=== PATIENT | male | born 1935 | race Caucasian/White ===

== ENCOUNTER 2017-02-17 21:43 | Inpatient (IN) | payer MEDICARE, BC ==
[~2017-02-17] VITALS: Ht 172.7 cm; Wt 72.6 kg
--- NOTE | ~2017-02-17 | DS ---
Unit #: [id number] #: [id number] Patient: RBYAN LOZADA SR [id number] [address] [place], [place] [address] [id number] MR#: [id number] NAME: BRYAN LOZADA SR ROOM: 557 Age: 81 Sex: M Admission Date: 02/17/2017 : 1935 Discharge Date: 02/22/2017 Attending Physician: Martha Haynes M.D. Primary Care Physician: Yannick Diaz D.O. DISCHARGE SUMMARY DISCHARGE DIAGNOSES 1. Acute non-ST elevation myocardial infarction. 2. Coronary artery disease, status post cardiac catheterization on 02/20/2017, which revealed normal LV. Left main normal. LAD 100% in origin. Saphenous vein graft to LAD 99% at mid portion. LAD beyond graft normal. Left circumflex small. First obtuse marginal 100%. Saphenous vein graft to the obtuse marginal one 100%. Second obtuse marginal normal. Right coronary artery normal. Small PDA 90%. Third saphenous vein graft to the diagonal 100%. Dr. Abrams consulted for reoperative coronary artery bypass grafting. Films reviewed. LAD not ideal target for surgery. Status post PCI and drug-eluting stent in the saphenous vein graft to the LAD on 02/21/2017. 3. History of coronary artery bypass grafting. 4. Two-dimensional echocardiogram 02/18/2017 was a technically difficult study. Ejection fraction 45%-50%. Moderate septal hypokinesis. Mild LVH. Mildly dilated left atrium. Mildly enlarged right atrial size. Aortic valve leaflets sclerotic with no stenosis. Mild to moderate aortic regurgitation. Mild to moderate mitral regurgitation. Moderate tricuspid regurgitation. Right ventricular systolic pressure 47 mmHg. No evidence of pericardial effusion. 5. Hypertension. 6. Hyperlipidemia. 7. Diabetes mellitus type 2. 8. Mild thrombocytopenia. DISCHARGE MEDICATIONS 1. Metformin 500 mg p.o. b.i.d. Resume on 02/23/2017. 2. Mariya 180 mg p.o. daily. 3. Atorvastatin 80 mg p.o. at bedtime. 4. Metoprolol succinate 25 mg p.o. b.i.d. 5. Torsemide 10 mg p.o. daily p.r.n. 6. Astelin 2 sprays in each nostril b.i.d. p.r.n. allergies. 7. Lisinopril 10 mg p.o. daily. 8. Aspirin 81 mg p.o. daily. 9. Brilinta 90 mg p.o. b.i.d. 10. Potassium chloride 10 mEq p.o. daily p.r.n. 11. Nitroglycerin 0.4 mg sublingual p.r.n. chest pain. HOSPITAL COURSE This is an 81-year-old white male who presented to the hospital with complaints of chest pain. He ruled in for a non-ST elevation myocardial infarction. He was recommended to undergo cardiac catheterization. His troponin peaked at 1.26, and subsequently decreased to 0.57. Lipid Unit #: [id number] #: [id number] Patient: BRYAN LOZADA SR profile was obtained and he was switched to a high dose statin. He was continued on a beta lai and MARY inhibitor. His metformin was held prior to the cardiac catheterization. The procedure was completed on 02/20/2017. Coronary angiography revealed 100% occlusion of the LAD. Saphenous vein graft to the LAD had a 99% stenosis in the mid portion. The LAD beyond the graft was normal. Left main and right coronary artery were normal. There was a small PDA of 90%. Left circumflex is small. First obtuse marginal was 100%. Saphenous vein graft to the first obtuse marginal was 100%. Second obtuse marginal was normal. The third saphenous vein graft to the diagonal was 100%. The patient's films were reviewed by Dr. Abrams. In his opinion the LAD was not an ideal target. He suggested proceeding with PCI on the saphenous vein graft to the LAD. The patient underwent successful deployment of a Synergy drug-eluting stent in the saphenous vein graft to the LAD, reducing the stenosis to 0%. He tolerated the procedure well. He was transferred to telemetry overnight. Postoperatively there was no complaint of chest pain. EKG reveals sinus rhythm with nonspecific ST-T wave changes. Telemetry reveals sinus rhythm/sinus bradycardia. The patient has ambulated without complaints. His catheterization site is soft without hematoma. Two-dimensional echocardiogram was completed on 02/18/2017 and revealed an ejection fraction of 45%-50%. There was mild to moderated aortic and mitral regurgitation, as well as moderate tricuspid regurgitation. RVSP was elevated at 47 mmHg. The two-dimensional echocardiogram was a technically difficult study. The patient is stable and will be discharged home today. He has been recommended for cardiac rehab. Post catheterization instructions have been provided. He has been placed on dual antiplatelet therapy with aspirin and Brilinta and the importance of continuing for 12 months has been discussed with the patient and he verbalized understanding. The cost of Brilinta is being evaluated with the [facility]. The patient has been provided samples as well as a 30-day copay card. He has also been given a prescription for atorvastatin. DIAGNOSTIC DATA LABORATORY: White blood cell count 7.6, hemoglobin 13.3, hematocrit 38.8, platelets 128, sodium 138, potassium 4.2, chloride 103, CO2 29, BUN 16, creatinine 1.1, glucose 111, peak troponin 1.26 followed by 0.57. CK total 47, MB 2.3, percentage MB 4.9, total cholesterol 114, triglycerides 76, LDL 52, HDL 47. CARDIOVASCULAR: Electrocardiogram reveals sinus rhythm with nonspecific ST-T wave changes. QTC 404 msec. PHYSICAL EXAMINATION VITALS: Temperature 97.5, pulse 76, blood pressure 113/53. CONSTITUTIONAL: This is an 81-year-old white male in no acute distress. SKIN: Warm and dry. NECK: Supple. No jugular venous distension. No hepatojugular reflux. Normal carotid upstrokes. No bruits auscultated. HEART: S1 and S2. Regular rate and rhythm. No murmurs, rubs or gallops. LUNGS: Bilateral breath sounds have good air entry throughout lung hernandez. Respirations even and unlabored. No rales, rhonchi or wheezes. ABDOMEN: Soft, nontender and nondistended. Positive bowel sounds auscultated four quadrants. No ascites noted. EXTREMITIES: Lower extremities have no pretibial pitting edema. DP and PT pulses 2+. Capillary refill 3 seconds. Right groin soft without hematoma. Unit #: [id number] #: [id number] Patient: BRYAN LOZADA SR Cathy DISCHARGE INSTRUCTIONS 1. The patient will be discharged home today. 2. Cardiac rehab. 3. Follow up with primary care physician in one to two weeks. 4. Follow up with Dr. Kohler on 05/02/2017 at 1:15 p.m. 5. Post catheterization instructions provided. 6. Copay card and one-month of samples provided for Drea. Dictated by... Ana Hein APRN for Eze Rivera/denise TD: 02/24/2017 09:42 JOB #: [id number] DISCHARGE SUMMARY Page 1 of 1 X X DISCHARGE SUMMARY
--- NOTE | ~2017-02-17 | EKG ---
PATIENT: BRYAN LOZADA UNIT #: [id number] Ventricular Rate: 83 BPM Atrial Rate: 83 BPM P-R Interval: 150 ms QRS Duration: 102 ms Q-T Interval: 350 ms QTC Calculation(Bezet): 411 ms P [place]: 57 degrees Calculated R [place]: 1 degrees Calculated T [place]: 163 degrees Diagnosis Line: Normal sinus rhythm Diagnosis Line: Possible Left atrial enlargement Diagnosis Line: ST and T wave abnormality, consider inferolateral Diagnosis Line: ischemia Diagnosis Line: Abnormal ECG Diagnosis Line: When compared with ECG of 28-NOV-2011 07:00, Diagnosis Line: QRS duration has increased Diagnosis Line: ST now depressed in Lateral leads Diagnosis Line: T wave inversion now evident in Lateral leads Diagnosis Line: Confirmed by ESTER SANTOS MD ([id number]) on Diagnosis Line: 02/27/2017 9:55:04 PM INTERPRETING MD: EVARISTO
--- NOTE | ~2017-02-17 | EKG ---
PATIENT: BRYAN LOZADA UNIT #: [id number] Ventricular Rate: 71 BPM Atrial Rate: 71 BPM P-R Interval: 144 ms QRS Duration: 94 ms Q-T Interval: 390 ms QTC Calculation(Bezet): 423 ms P [place]: 62 degrees Calculated R [place]: 21 degrees Calculated T [place]: 114 degrees Diagnosis Line: Normal sinus rhythm Diagnosis Line: T wave abnormality, consider anterolateral Diagnosis Line: ischemia Diagnosis Line: Anterior infarct Diagnosis Line: Abnormal ECG Diagnosis Line: When compared with ECG of 18-FEB-2017 08:18, Diagnosis Line: (unconfirmed) Diagnosis Line: Nonspecific T wave abnormality no longer evident Diagnosis Line: in Inferior leads Diagnosis Line: Serial changes of evolving Anterior infarct Diagnosis Line: Confirmed by TOMA RM MD ([id number]) on 02/21/2017 Diagnosis Line: 10:49:07 PM INTERPRETING MD: JAG FONTAINE
--- NOTE | ~2017-02-17 | HP ---
Unit #: [id number] #: [id number] Patient: BRYAN LOZADA SR [id number] [facility]. [place] [id number] [facility]. [place], [place] [address] [id number] I MR#: [id number] NAME: BRYAN LOZADA SR ROOM: 557 Age: 81 Sex: M Admission Date: 02/17/2017 : 1935 Attending Physician: Martha Haynes M.D. Primary Care Physician: Yannick Diaz D.O. HISTORY AND PHYSICAL HISTORY OF PRESENT ILLNESS This is an 81-year-old, white male who is a patient of Dr. Kohler in our office. He has a history of previous CABG back in 1988. In 2011, he had a cardiac cath that showed his grafts are patent to the LAD and the diagonal branch of the LAD and he had an 80% stenosis to the saphenous vein graft to the first obtuse marginal of the circumflex. He was offered angioplasty/stent versus medical management. At the time, the patient preferred medical management. Since that time, patient has been stable. He just saw Dr. Kohler in December and was doing fine. Patient does say that the last week, he has been having intermittent left anterior chest wall pain that radiates down into the left axillary region. He said it makes him feel just a little weak. He denies any shortness of breath. Denies any palpitations. No dizziness. No diaphoresis. He has not had any recent fever or chills, but he has been going to his doctor for allergy problems, which has also improved. Last evening, he said the pain returned and would not ease off. He said over the past week he has been taking some sublingual nitroglycerin and has eased off the pain and then it will stay gone for a few hours and reoccur and he would take another nitroglycerin with relief. He said during this episode the pain would not ease off with nitroglycerin. He came in for further evaluation and management. He denies it radiates up to his neck or jaw. He is not having abdominal or back pain. In the emergency room, patient's blood pressure is 184/87 and heart rate 84, respirations 16, temperature 98.5, and O2 sats 99% on room air. His initial cardiac enzymes: His troponin was 0.14 and then 0.14 and this morning it is 1.06. His creatinine is 1.2, potassium is 4, sodium 135, and magnesium is 1.9. His platelets this morning are 135. His BNP is 144. His chest x-ray shows no active disease and previous CABG. His EKG shows normal sinus rhythm. It does have some ST-T wave abnormalities in inferolateral leads. Patient was started on heparin drip per protocol and also given aspirin 325 and started on a nitroglycerin drip, which that continues. He also continued on his MARY inhibitor, his statin, Plavix, aspirin, and beta-lai. Patient will be admitted for further management of non-ST elevated AK. PAST MEDICAL HISTORY 1. History of coronary artery disease, previous CABG back in 1988. November 2011, his last cardiac cath revealed EF of 50%, patent saphenous vein graft to the LAD, patent saphenous vein graft to the diagonal branch of the LAD, and 80% stenosis in the saphenous vein graft to the first obtuse marginal of the circumflex - medical management. 2. Noted that during a cath in 1989, he had ventricular fibrillation on Unit #: [id number] #: [id number] Patient: BRYAN LOZADA injection of contrast dye into the diagonal branch of the saphenous vein graft. 3. Diabetes mellitus type 2. 4. Hypertension. 5. Hyperlipidemia. 6. Peripheral vascular disease. 7. Smokes a pipe. PAST SURGICAL HISTORY 1. Coronary artery bypass graft in 1988. 2. Cholecystectomy. 3. Right knee replacement. 4. Cervical neck fusion. 5. Cataract surgery. HOME MEDICATIONS 1. Simvastatin 20 mg p.o. at h.s. 2. Metformin 500 mg p.o. twice daily. 3. Lisinopril 10 mg p.o. once daily in the morning. 4. Torsemide 10 mg p.o. daily. 5. Potassium chloride 10 mEq p.o. daily. 6. Aspirin 81 mg daily. 7. Nitrostat 0.4 mg sublingual every 5 minutes x3 p.r.n. for chest pain. 8. Toprol XL 25 mg p.o. twice daily. 9. Azelastine inhalation in each nostril twice daily. 10. Mariya 180 mg p.o. daily. ALLERGIES Codeine and doxycycline. SOCIAL HISTORY Patient lives with his spouse. He does some chores around the home, but nothing very exertional. He continues to smoke a pipe. No alcohol or illicit drug use. FAMILY HISTORY Both his parents had myocardial infarction in their 70s. A younger brother, who has had a coronary bypass graft in his 70s. REVIEW OF SYSTEMS CONSTITUTIONAL: Denies fever or chills. No recent weight gain or weight loss. HEENT: Denies headache or dizziness. No visual or hearing changes. No lymphadenopathy or thyromegaly. No difficulty swallowing. CARDIOVASCULAR: Chest pain present. Denies palpitations. Some slight increased lower extremity edema, especially on the left. GI: Denies nausea, vomiting, diarrhea, or abdominal pain. NEUROLOGIC: No focal weakness. PHYSICAL EXAMINATION GENERAL: On exam, Mr. Lozada is an 81-year-old, white male in no acute respirations distress. He is awake, alert, and oriented. VITAL SIGNS: Blood pressure is 123/58, heart rate 64, respirations 18, temperature 97.7, and O2 saturation 100% on room air. NECK: Trachea midline. No thyromegaly or lymphadenopathy. Normal carotid upstrokes. No jugular venous distention. HEART: S1 and S2. Regular rate and rhythm. No clicks. Slight systolic murmur, left sternal border. Unit #: [id number] #: [id number] Patient: BRYAN LOZADA SR LUNGS: Slightly diminished, otherwise clear. ABDOMEN: Slightly obese. Soft and nontender. Positive bowel sounds present. EXTREMITIES: Pedal pulses are palpable. Pedal edema 1+, especially on the left. LABORATORY AND DIAGNOSTIC DATA LABORATORY: Glucose is 127, BUN 20, creatinine 1.2, EGFR is 56.4, sodium 135, potassium 4, chloride 101, CO2 29, calcium is 8.8, magnesium is 1.9, total protein 7, albumin 4, AST is 19, ALT 17, and alk phos is 74. BNP is 144. WBC is 7, hemoglobin 14.2, hematocrit 41.9, and platelets down to 134. On admission, his platelets were 146. Initial cardiac enzymes: CK MB 1.7, troponin 0.14. CK MB 1.7 and troponin 0.14. This morning, troponin is 1.06. IMAGING: Chest x-ray shows no active disease and previous coronary artery bypass graft. CARDIOVASCULAR: EKG shows normal sinus rhythm, some nonspecific ST-T wave abnormalities in lateral leads, Q waves in V1 and possibly lead III, and left atrial enlargement. IMPRESSION 1. Acute non-ST elevated myocardial infarction, previous coronary artery bypass graft in 1998 and found to have an 80% stenosis in the saphenous vein graft to the first obtuse marginal branch of the circumflex back on a cath in 2011. Medical management. 2. Ejection fraction of 50% on last cath in 2011. 3. Diabetes mellitus type 2. 4. Hypertension. 5. Hyperlipidemia. 6. Peripheral vascular disease. 7. Nicotine abuse, smokes a pipe. PLANS 1. Treatment for the acute non-STEMI, has the patient on aspirin, heparin drip, and nitroglycerin drip. Will start Integrilin drip per protocol now. 2. Also, will stop the Zocor and start Lipitor 80 mg p.o. daily. 3. Obtain a 2D echo to evaluate LV function and valves. 4. Will titrate the nitroglycerin drip for chest pain and to keep his systolic above 100 mmHg. 5. Obtain a fasting lipid profile and TSH and evaluate. 6. I discussed with the patient about will need a heart catheterization to further evaluate his ischemic heart disease. 7. On exam, there are no signs or symptoms of acute congestive heart failure. As mentioned, will evaluate his echo. 8. Continue patient on his MARY inhibitor in addition to his Lasix 10 mg daily and low dose potassium. 9. Discussed with patient the cardiac cath. Discussed with patient risks and benefits including risks of bleeding, myocardial infarction, stroke, and even . Patient verbalizes understanding and agrees to proceed. 10. Patient, this morning, has been having some additional chest pain. Discussed at length with the patient about the possibility the need to transfer him to [facility] to have an intervention before Monday. The patient and the are adamantly refusing to do this at this point. He just wants to wait until Monday. Unit #: [id number] #: [id number] Patient: BRYAN LOZADA 11. Discussed with patient . 12. Further recommendations pending per Dr. Haynes. 13. Encouraged patient to quit smoking a pipe, nicotine abuse. Smoking cessation information provided to patient. Dictated by Loni Verma A.P.R.NRichi for Eze Torres/pc TD: 02/18/2017 11:51 JOB #: [id number] HISTORY AND PHYSICAL Page 1 of 1 X Loni Verma APRN X HISTORY AND PHYSICAL
--- NOTE | ~2017-02-17 | EKG ---
PATIENT: BRYAN LOZADA UNIT #: [id number] Ventricular Rate: 64 BPM Atrial Rate: 64 BPM P-R Interval: 158 ms QRS Duration: 86 ms Q-T Interval: 392 ms QTC Calculation(Bezet): 404 ms P [place]: 56 degrees Calculated R [place]: 17 degrees Calculated T [place]: 108 degrees Diagnosis Line: Normal sinus rhythm Diagnosis Line: T wave abnormality, consider anterior ischemia Diagnosis Line: Abnormal ECG Diagnosis Line: When compared with ECG of 21-FEB-2017 05:33, Diagnosis Line: No significant change was found Diagnosis Line: Confirmed by TOMA RM MD ([id number]) on 02/22/2017 Diagnosis Line: 12:04:58 AM INTERPRETING MD: JAG FONTAINE
--- NOTE | ~2017-02-17 | EKG ---
PATIENT: BRYAN LOZADA UNIT #: [id number] Ventricular Rate: 72 BPM Atrial Rate: 72 BPM P-R Interval: 118 ms QRS Duration: 90 ms Q-T Interval: 392 ms QTC Calculation(Bezet): 429 ms P [place]: 25 degrees Calculated R [place]: 2 degrees Calculated T [place]: 93 degrees Diagnosis Line: Normal sinus rhythm Diagnosis Line: T wave abnormality, consider anterior ischemia Diagnosis Line: Abnormal ECG Diagnosis Line: When compared with ECG of 28-NOV-2011 07:00, Diagnosis Line: Nonspecific T wave abnormality, worse in Inferior Diagnosis Line: leads Diagnosis Line: T wave inversion now evident in Anterolateral Diagnosis Line: leads Diagnosis Line: Confirmed by TOMA RM MD ([id number]) on 02/21/2017 Diagnosis Line: 6:54:12 AM INTERPRETING MD: JAG FONTAINE
--- NOTE | ~2017-02-17 | EKG ---
PATIENT: BRYAN LOZADA UNIT #: [id number] Ventricular Rate: 70 BPM Atrial Rate: 70 BPM P-R Interval: 138 ms QRS Duration: 86 ms Q-T Interval: 388 ms QTC Calculation(Bezet): 419 ms P [place]: 60 degrees Calculated R [place]: 23 degrees Calculated T [place]: 121 degrees Diagnosis Line: Normal sinus rhythm Diagnosis Line: ST and T wave abnormality, consider anterolateral Diagnosis Line: ischemia Diagnosis Line: Abnormal ECG Diagnosis Line: When compared with ECG of 19-FEB-2017 07:40, Diagnosis Line: (unconfirmed) Diagnosis Line: Nonspecific T wave abnormality now evident in Diagnosis Line: Inferior leads Diagnosis Line: Confirmed by TOMA RM MD ([id number]) on 02/21/2017 Diagnosis Line: 11:33:49 PM INTERPRETING MD: JAG FONTAINE
--- NOTE | ~2017-02-17 | EKG ---
PATIENT: BRYAN LOZADA UNIT #: [id number] Ventricular Rate: 63 BPM Atrial Rate: 63 BPM P-R Interval: 140 ms QRS Duration: 90 ms Q-T Interval: 414 ms QTC Calculation(Bezet): 423 ms P [place]: 65 degrees Calculated R [place]: 18 degrees Calculated T [place]: 130 degrees Diagnosis Line: Normal sinus rhythm Diagnosis Line: T wave abnormality, consider anterolateral Diagnosis Line: ischemia Diagnosis Line: Abnormal ECG Diagnosis Line: When compared with ECG of 20-FEB-2017 05:39, Diagnosis Line: (unconfirmed) Diagnosis Line: No significant change was found Diagnosis Line: Confirmed by TOMA RM MD ([id number]) on 02/21/2017 Diagnosis Line: 11:58:08 PM INTERPRETING MD: JAG FONTAINE
--- NOTE | ~2017-02-17 | EKG ---
PATIENT: BRYAN LOZADA UNIT #: [id number] Ventricular Rate: 77 BPM Atrial Rate: 77 BPM P-R Interval: 134 ms QRS Duration: 90 ms Q-T Interval: 378 ms QTC Calculation(Bezet): 427 ms P [place]: 75 degrees Calculated R [place]: 40 degrees Calculated T [place]: 139 degrees Diagnosis Line: Normal sinus rhythm Diagnosis Line: ST and T wave abnormality, consider anterolateral Diagnosis Line: ischemia Diagnosis Line: Abnormal ECG Diagnosis Line: When compared with ECG of 21-FEB-2017 10:04, Diagnosis Line: No significant change was found Diagnosis Line: Confirmed by TOMA RM MD ([id number]) on 02/22/2017 Diagnosis Line: 11:09:13 PM INTERPRETING MD: JAG FONTAINE
--- NOTE | ~2017-02-17 | CR72 ---
[facility]. [facility] A Service of [facility] & [facility] RADIOLOGY TEXT RESULTS PATIENT: BRYAN LOZADA LOCATION: [place] [address] : [birth year] UNIT #: [id number] AGE: [address]: Martha Haynes MD SEX: M ORDER DR: [id number] [place] [id number] I MR#: [id number] Acc #: [id number] NAME: BRYAN LOZADA SR : 1935 SEX: M STUDY DATE/TIME: 02/17/2017 22:38 UNIT: SEDOF ROOM: [facility] STUDY DESCRIPTION: CR Chest Single View Portable Attending Physician: Martha Haynes M.D. Ordering Physician: Fernandez Hanson (Res) Primary Care Physician: Yannick Diaz D.O. MEDICAL IMAGING REPORT This report is preliminary unless electronic signature is present. EXAM Chest x-ray, 02/17/2017 HISTORY 81-year-old male in the ED complaining of 1-week history of chest pain. TECHNIQUE AP portable upright chest x-ray. FINDINGS The exam shows no active disease in the chest. Mild cardiomegaly is stable. Pulmonary vascularity is normal. Postop changes CABG. The lungs appear clear. No pleural effusion. No significant change since 05/08/2013. IMPRESSION No active disease. CABG. No change since 05/08/2013. Dictated by... Tristen Doyle M.D. THIS IS AN ELECTRONICALLY VERIFIED REPORT Tristen Doyle M.D. at 02/18/2017 5:58 AM RAJESH/donnell TD: 02/18/2017 03:47 JOB #: [id number] MEDICAL IMAGING REPORT Page 1 of 1
[~2017-02-17 21:43] MED LIST: ASPIRIN PO; BACTRIM DS TABL1 TA1 PO; BAYER ASPIRIN325 M1 PO; CARAFATE1 G PO; DEMADEX PO; HCTZ PO; ISORDIL; ISORDIL PO; KCL PO; LASIX PO; LISINOPRIL PO; LISINOPRIL10 MG PO; LOPRESSOR PO; LORTAB 5/500 TA1 TA1 PO; METFORMIN HCL500 M1 PO; METFORMIN PO; NITROGLYGERIN0.4 MG SL; PEPCID PO; PLAVIX PO; POTASSIUM CHLO10 ME1 PO; PRILOSEC20 MG PO; PROTONIX PO; SIMVASTATIN20 MG PO; TORSEMIDE10 MG PO; VICODIN 5/1 TAB 5/50 PO; ZOCOR PO
[2017-02-17] MEDS ORDERED: TOPROL XL50 MG PO (22:05)
[2017-02-17 22:16] LABS: BASOPHIL% 0.4 % (0-2.5); EOSINOPHIL# 0.3 X10e3 (0-0.7); EOSINOPHIL% 4.1 % (0.0-7.0); HEMATOCRIT 42.7 % (38.0-50.0); HEMOGLOBIN 14.7 gm/dL (13.0-16.0); LYMPHOCYTE# 1.8 X10e3 (1.0-3.5); LYMPHOCYTE% 25.1 % (17.0-45.0); MEAN CELL VOLUME 90.4 FL (83-96); MEAN CORPUSCULAR HEMOGLOBIN 31.2 PG (28-34); MEAN CORPUSCULAR HGB CONC 34.5 g/dL (30-36); MEAN PLATELET VOLUME 8.7 FL (6.5-11.5); MONOCYTE% 14.1 % (3.0-12.0); NEUTROPHIL# 4.1 X10e3 (1.5-7.1); NEUTROPHIL% 56.3 % (40-75); PLATELET COUNT 146 X10e3 (140-420); RED BLOOD COUNT 4.73 X10e (3.90-5.60); RED CELL DISTRIBUTION WIDTH 14.1 % (11.0-15.5); WHITE BLOOD COUNT 7.2 X10e3 (4.0-10.5)
[2017-02-17 22:17] LABS: DIFF IND NO
[2017-02-17 22:23] LABS: POC - CKMB 1.7 ng/mL (0.0-7.9)
[2017-02-17 22:24] LABS: POC - TROPONIN 0.14 ng/mL (<=0.05)
[2017-02-17 22:28] LABS: BILIRUBIN, DIRECT 0.1 mg/dL (0.0-0.2); BILIRUBIN,INDIRECT 0.5 mg/dL (0.0-0.9); BILIRUBIN,TOTAL 0.6 mg/dL (0.2-2.0); BUN/CREATININE RATIO 19.16; CALCIUM SERUM 8.8 mg/dL (8.4-10.2); CREATININE SERUM 1.2 mg/dL (0.6-1.4); GLOM FILT RATE Estimated 56.4 mL/min (>60)
[2017-02-17 22:29] LABS: INR 1.1; PROTHROMBIN TIME (PATIENT) 12.4 SECONDS (9.5-12.4)
[2017-02-17 22:36] LABS: PARTIAL THROMBOPLASTIN TIME 26.5 SECONDS (25.6-38.1)
[2017-02-17 23:50] LABS: POC - CKMB 1.7 ng/mL (0.0-7.9); POC - TROPONIN 0.14 ng/mL (<=0.05)
[2017-02-18] MEDS ORDERED: AZELASTINE205.5 MCG/ INH (01:56)
[2017-02-18] MEDS ORDERED: ALLEGRA ALLERG180 MG PO (01:57)
[2017-02-18 04:23] LABS: BASOPHIL% 0.6 % (0-2.5); EOSINOPHIL# 0.3 X10e3 (0-0.7); EOSINOPHIL% 4.1 % (0.0-7.0); HEMATOCRIT 41.9 % (38.0-50.0); HEMOGLOBIN 14.2 gm/dL (13.0-16.0); LYMPHOCYTE# 1.9 X10e3 (1.0-3.5); LYMPHOCYTE% 27.6 % (17.0-45.0); MEAN CELL VOLUME 90.7 FL (83-96); MEAN CORPUSCULAR HEMOGLOBIN 30.7 PG (28-34); MEAN CORPUSCULAR HGB CONC 33.9 g/dL (30-36); MEAN PLATELET VOLUME 8.7 FL (6.5-11.5); MONOCYTE# 0.9 X10e3 (0-1.0); MONOCYTE% 12.7 % (3.0-12.0); NEUTROPHIL# 3.9 X10e3 (1.5-7.1); PLATELET COUNT 134 X10e3 (140-420); RED BLOOD COUNT 4.62 X10e (3.90-5.60); RED CELL DISTRIBUTION WIDTH 13.9 % (11.0-15.5)
[2017-02-18 04:30] LABS: DIFF IND NO
[2017-02-18 04:31] LABS: INR 1.1; PARTIAL THROMBOPLASTIN TIME 68.5 SECONDS (23.5-31.3); PROTHROMBIN TIME (PATIENT) 11.6 SECONDS (10.0-11.7)
[2017-02-18 04:33] LABS: BUN/CREATININE RATIO 16.66; CALCIUM SERUM 8.8 mg/dL (8.4-10.2); CREATININE SERUM 1.2 mg/dL (0.6-1.4); GLOM FILT RATE Estimated 56.4 mL/min (>60); MAGNESIUM 1.9 mg/dL (1.6-3.0)
[2017-02-18 10:03] LABS: CHOLESTEROL 116 mg/dL (0-200); HDL CHOLESTEROL 51 mg/dL (29-75); LDL CHOLESTEROL 53 mg/dL (-130); LDL/HDL RATIO 1 RATIO (0-4); TRIGLYCERIDES 59 mg/dL (10-160)
[2017-02-19 04:58] LABS: BASOPHIL% 0.6 % (0-2.5); DIFF IND NO; EOSINOPHIL# 0.3 X10e3 (0-0.7); EOSINOPHIL% 4.5 % (0.0-7.0); HEMATOCRIT 42.4 % (38.0-50.0); HEMOGLOBIN 14.5 gm/dL (13.0-16.0); LYMPHOCYTE# 1.6 X10e3 (1.0-3.5); LYMPHOCYTE% 24.2 % (17.0-45.0); MEAN CELL VOLUME 90.7 FL (83-96); MEAN CORPUSCULAR HGB CONC 34.2 g/dL (30-36); MEAN PLATELET VOLUME 8.6 FL (6.5-11.5); MONOCYTE# 0.9 X10e3 (0-1.0); MONOCYTE% 13.3 % (3.0-12.0); NEUTROPHIL# 3.8 X10e3 (1.5-7.1); NEUTROPHIL% 57.4 % (40-75); PLATELET COUNT 129 X10e3 (140-420); RED BLOOD COUNT 4.68 X10e (3.90-5.60); RED CELL DISTRIBUTION WIDTH 13.9 % (11.0-15.5); WHITE BLOOD COUNT 6.6 X10e3 (4.0-10.5)
[2017-02-19 06:33] LABS: CALCIUM SERUM 8.8 mg/dL (8.4-10.2); GLOM FILT RATE Estimated 70.3 mL/min (>60)
[2017-02-20 07:21] LABS: BASOPHIL% 0.6 % (0-2.5); EOSINOPHIL# 0.3 X10e3 (0-0.7); EOSINOPHIL% 4.8 % (0.0-7.0); LYMPHOCYTE# 1.9 X10e3 (1.0-3.5); LYMPHOCYTE% 27.4 % (17.0-45.0); MEAN CELL VOLUME 90.7 FL (83-96); MEAN CORPUSCULAR HGB CONC 34.2 g/dL (30-36); MEAN PLATELET VOLUME 9.4 FL (6.5-11.5); MONOCYTE% 14.8 % (3.0-12.0); NEUTROPHIL# 3.6 X10e3 (1.5-7.1); NEUTROPHIL% 52.4 % (40-75); PLATELET COUNT 132 X10e3 (140-420); RED BLOOD COUNT 4.85 X10e (3.90-5.60); RED CELL DISTRIBUTION WIDTH 14.1 % (11.0-15.5); WHITE BLOOD COUNT 6.9 X10e3 (4.0-10.5)
[2017-02-20 07:28] LABS: INR 1.1; PROTHROMBIN TIME (PATIENT) 11.7 SECONDS (10.0-11.7)
[2017-02-20 07:50] LABS: DIFF IND NO
[2017-02-21 04:22] LABS: BASOPHIL% 0.4 % (0-2.5); EOSINOPHIL# 0.4 X10e3 (0-0.7); EOSINOPHIL% 5.7 % (0.0-7.0); HEMATOCRIT 40.3 % (38.0-50.0); HEMOGLOBIN 13.8 gm/dL (13.0-16.0); LYMPHOCYTE# 1.6 X10e3 (1.0-3.5); LYMPHOCYTE% 24.6 % (17.0-45.0); MEAN CELL VOLUME 90.5 FL (83-96); MEAN CORPUSCULAR HEMOGLOBIN 30.9 PG (28-34); MEAN CORPUSCULAR HGB CONC 34.1 g/dL (30-36); MEAN PLATELET VOLUME 8.4 FL (6.5-11.5); MONOCYTE# 0.8 X10e3 (0-1.0); NEUTROPHIL# 3.6 X10e3 (1.5-7.1); NEUTROPHIL% 57.3 % (40-75); PLATELET COUNT 131 X10e3 (140-420); RED BLOOD COUNT 4.45 X10e (3.90-5.60); RED CELL DISTRIBUTION WIDTH 13.7 % (11.0-15.5); WHITE BLOOD COUNT 6.3 X10e3 (4.0-10.5)
[2017-02-21 04:23] LABS: DIFF IND NO
[2017-02-21 04:37] LABS: INR 1.1; PARTIAL THROMBOPLASTIN TIME 36.8 SECONDS (23.5-31.3); PROTHROMBIN TIME (PATIENT) 11.8 SECONDS (10.0-11.7)
[2017-02-21 04:45] LABS: BUN/CREATININE RATIO 18.18; CALCIUM SERUM 8.8 mg/dL (8.4-10.2); CREATININE SERUM 1.1 mg/dL (0.6-1.4); GLOM FILT RATE Estimated 62.6 mL/min (>60); POTASSIUM 4.3 mmol/L (3.5-5.1)
[2017-02-21 17:46] LABS: ANGIO %MB 5.2 % (0.0-4.0); ANGIO MB 2.2 ng/ml
[2017-02-22 01:07] LABS: BASOPHIL% 0.4 % (0-2.5); DIFF IND NO; EOSINOPHIL# 0.4 X10e3 (0-0.7); HEMATOCRIT 38.8 % (38.0-50.0); HEMOGLOBIN 13.3 gm/dL (13.0-16.0); LYMPHOCYTE% 13.8 % (17.0-45.0); MEAN CELL VOLUME 90.1 FL (83-96); MEAN CORPUSCULAR HEMOGLOBIN 30.8 PG (28-34); MEAN CORPUSCULAR HGB CONC 34.1 g/dL (30-36); MEAN PLATELET VOLUME 9.1 FL (6.5-11.5); MONOCYTE# 0.9 X10e3 (0-1.0); MONOCYTE% 11.3 % (3.0-12.0); NEUTROPHIL# 5.3 X10e3 (1.5-7.1); NEUTROPHIL% 69.5 % (40-75); PLATELET COUNT 128 X10e3 (140-420); RED BLOOD COUNT 4.31 X10e (3.90-5.60); WHITE BLOOD COUNT 7.6 X10e3 (4.0-10.5)
[2017-02-22 01:45] LABS: ANGIO %MB 4.9 % (0.0-4.0); ANGIO MB 2.3 ng/ml; BUN/CREATININE RATIO 14.54; CALCIUM SERUM 8.6 mg/dL (8.4-10.2); CREATININE SERUM 1.1 mg/dL (0.6-1.4); GLOM FILT RATE Estimated 62.6 mL/min (>60); POTASSIUM 4.2 mmol/L (3.5-5.1)
[2017-02-22] MEDS ORDERED: LIPITOR80 MG PO (13:21)
[2017-02-22] MEDS ORDERED: BRILINTA90 MG PO (13:22)
== END 2017-02-22 15:14 | disposition home or self-care (01) | DRG 247 ==
LOC: SED 21:43 → C5B 22:40 → SEDOF 22:40 → SED 22:43 → SEDOF 02-18 01:12 → C5B 02-18 01:12
PROVIDERS: Emergency Medicine; Internal Medicine Cardiovascular Disease; Nurse Practitioner
PROC: B24BYZZ Ultrasonography of Heart with Aorta using Other Contrast (ICD-10-PCS; principal; 2017-02-18)
PROC: 4A023N7 Measurement of Cardiac Sampling and Pressure, Left Heart, Percutaneous Approach (ICD-10-PCS; 2017-02-20)
PROC: B213YZZ Fluoroscopy of Multiple Coronary Artery Bypass Grafts using Other Contrast (ICD-10-PCS; 2017-02-20)
PROC: B211YZZ Fluoroscopy of Multiple Coronary Arteries using Other Contrast (ICD-10-PCS; 2017-02-20)
PROC: B215YZZ Fluoroscopy of Left Heart using Other Contrast (ICD-10-PCS; 2017-02-20)
PROC: 027034Z Dilation of Coronary Artery, One Artery with Drug-eluting Intraluminal Device, Percutaneous Approach (ICD-10-PCS; 2017-02-21)
DX: I21.4 Non-ST elevation (NSTEMI) myocardial infarction (principal); E11.9 Type 2 diabetes mellitus without complications; I25.810 Atherosclerosis of coronary artery bypass graft(s) without angina pectoris; I25.10 Atherosclerotic heart disease of native coronary artery without angina pectoris; Z79.84 Long term (current) use of oral hypoglycemic drugs; I10 Essential (primary) hypertension; E78.5 Hyperlipidemia, unspecified; I49.3 Ventricular premature depolarization; F17.290 Nicotine dependence, other tobacco product, uncomplicated
CPT/HCPCS: 36415; 71010; 80048; 80061; 80076; 82550; 82553; 82947; 83735; 83880; 84443; 84484; 85025; 85049; 85347; 85610; 85730; 93005; 93306; 96365; 96366; 96375; 99291; C1725; C1769; C1874; C1887; C1894; J0153; J0461; J1327; J1644; J1650; J1815; J2250; J2270; J2370; J2405; J3010